=== PATIENT | male | born 1955 | race Asian ===

== ENCOUNTER 2018-04-23 09:04 | Emergency (ER) | payer OTHER ==
[~2018-04-23] VITALS: Ht 175.3 cm; Wt 81.6 kg
[2018-04-23 09:05] VITALS: BP 142/98
--- NOTE | 2018-04-23 09:05 | NUR ---
PT BIBA BLS TO BED 7
[2018-04-23] MEDS ORDERED: ONDANSETRON 4 MG ODT PO ONE (09:25)
[2018-04-23] MEDS ORDERED: ACETAMINOPHEN 325 MG TAB PO ONE (09:25)
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
--- NOTE | 2018-04-23 09:26 | NUR ---
PT TAKEN OF THE UNIT FOR CT OF THE HEAD VIA WHEEL CHAIR BY ELECTRIC INSTALLER, REPORT GIVEN TO RAIN YU
--- NOTE | 2018-04-23 09:33 | NUR ---
PT TAKEN TO CT IN WHEELCHAIR
--- NOTE | 2018-04-23 09:34 | NUR ---
Mateo reeves in ED - 04/23/18 at 0939 by CARLITO PT. TAKEN TO CT VIA WHEELCHAIR BY TECH.
--- NOTE | 2018-04-23 09:47 | NUR ---
PT RETURNED FROM CT
[2018-04-23 10:20] VITALS: BP 142/98
--- NOTE | 2018-04-23 10:20 | NUR ---
Patient discharged with v/s stable. Written and verbal after care instructions given and explained. Patient verbalized understanding. Ambulatory with steady gait. All questions addressed prior to discharge. Advised to follow up with PMD.
== END 2018-04-23 10:20 | disposition home or self-care (01) ==
LOC: MED 09:04
DX: S09.90XA Unspecified injury of head, initial encounter (principal); V49.59XA Passenger injured in collision with other motor vehicles in traffic accident, initial encounter; Y93.89 Activity, other specified; Y99.8 Other external cause status; Y92.410 Unspecified street and highway as the place of occurrence of the external cause
CPT/HCPCS: 70450; 99284; S0119